=== PATIENT | female | born 1985 | race African-American/Black ===

== ENCOUNTER 2023-08-26 21:19 | Emergency (ER) | payer OTHER ==
[~2023-08-26] VITALS: Ht 177.8 cm; Wt 64.0 kg
[2023-08-26 21:24] VITALS: O2SAT 99
[2023-08-27 02:25] VITALS: BP 140/83; PULSE 85; RESP 16; TEMP 98.2
== END 2023-08-27 02:27 | disposition home or self-care (01) ==
LOC: ER 21:19
DX: F41.9 Anxiety disorder, unspecified (principal)
CPT/HCPCS: 99283

== ENCOUNTER 2023-09-14 09:51 | Emergency (ER) | payer OTHER ==
[~2023-09-14] VITALS: Ht 167.6 cm; Wt 62.0 kg
[2023-09-14 10:03] VITALS: BP 149/71; PULSE 108; RESP 18; O2SAT 100
[2023-09-14 10:15] VITALS: TEMP 98
[2023-09-14] MEDS ORDERED: ACETAMINOPHEN 325MG TABLET PO ONE (10:15)
[2023-09-14] MEDS ORDERED: TOPUD MT (12:55)
== END 2023-09-14 14:03 | disposition home or self-care (01) ==
LOC: ER 09:51
DX: S06.0X0A Concussion without loss of consciousness, initial encounter (principal); X58.XXXA Exposure to other specified factors, initial encounter; Y93.9 Activity, unspecified; Y92.89 Other specified places as the place of occurrence of the external cause; Y99.8 Other external cause status
CPT/HCPCS: 99284

== ENCOUNTER 2023-10-14 12:33 | Emergency (ER) | payer OTHER ==
[~2023-10-14] VITALS: Ht 170.2 cm; Wt 59.0 kg
[~2023-10-14 12:33] MED LIST: TOPUD MT
[2023-10-14 12:45] VITALS: O2SAT 100
[2023-10-14] MEDS ORDERED: CEFTRIAXONE SODIUM 500 MG/VIAL IM ONE (16:45)
[2023-10-14 16:51] LABS: CLARITY URINE TURBID (CLEAR); COLOR URINE DARK YELLOW (YELLOW); GLUCOSE URINE NEGATIVE (NEGATIVE); KETONES URINE 4+ (NEGATIVE); LEUKOCYTE ESTERASE URINE 2+ (NEGATIVE); NITRITE URINE POSITIVE (NEGATIVE); OCCULT BLOOD URINE NEGATIVE (NEGATIVE); PH URINE 6.5 (4.5-8.0); PROTEIN URINE TRACE (NEGATIVE); SPECIFIC GRAVITY URINE 1.025 (1.005-1.030)
[2023-10-14] MEDS ORDERED: DOXY100C5 MT (16:52)
[2023-10-14] MEDS ORDERED: METR-167 PO (16:53)
[2023-10-14 17:20] LABS: BACTERIA URINE 3+; RBC URINE 0-2 /hpf (0-2); SQUAMOUS EPITHELIAL CELL URINE 2+ /lpf (RARE/1+); WBC URINE 15-25 /hpf (0-2)
[2023-10-14 17:59] VITALS: BP 132/84; PULSE 97; RESP 18; TEMP 98.2
[2023-10-18 13:11] LABS: CHLAMYDIA TRACHOMATIS NAA Negative (Negative); NEISSERIA GONORRHOEAE NAA Negative (Negative)
== END 2023-10-14 18:00 | disposition home or self-care (01) ==
LOC: ER 12:35
DX: N89.8 Other specified noninflammatory disorders of vagina (principal); Z98.890 Other specified postprocedural states
CPT/HCPCS: 87491; 87591; 81003; 81025; 87086; 87186; 87077; 96372; 99283; J0696; Z7610

== ENCOUNTER 2024-01-20 13:45 | Emergency (ER) | payer OTHER ==
[~2024-01-20] VITALS: Ht 170.2 cm; Wt 50.1 kg
[~2024-01-20 13:45] MED LIST changes: +DOXY100C5 MT; +METR-167 PO
[2024-01-20 14:01] VITALS: O2SAT 98
[2024-01-20 17:04] LABS: CLARITY URINE CLEAR (CLEAR); COLOR URINE YELLOW (YELLOW); GLUCOSE URINE NEGATIVE (NEGATIVE); KETONES URINE NEGATIVE (NEGATIVE); LEUKOCYTE ESTERASE URINE 3+ (NEGATIVE); NITRITE URINE NEGATIVE (NEGATIVE); OCCULT BLOOD URINE NEGATIVE (NEGATIVE); PH URINE 6.5 (4.5-8.0); PROTEIN URINE NEGATIVE (NEGATIVE); SPECIFIC GRAVITY URINE 1.011 (1.005-1.030)
[2024-01-20 17:18] LABS: BACTERIA URINE 2+; RBC URINE 0-2 /hpf (0-2); SQUAMOUS EPITHELIAL CELL URINE RARE /lpf (RARE/1+)
[2024-01-20] MEDS ORDERED: METR-167 MT (17:26)
[2024-01-20 17:36] VITALS: BP 128/66; PULSE 88; RESP 18; TEMP 98.7
[2024-01-25 04:07] LABS: CHLAMYDIA TRACHOMATIS NAA Negative (Negative); NEISSERIA GONORRHOEAE NAA Negative (Negative)
== END 2024-01-20 17:41 | disposition home or self-care (01) ==
LOC: ER 13:45
DX: N76.0 Acute vaginitis (principal); Z98.890 Other specified postprocedural states
CPT/HCPCS: 81003; 81025; 87491; 87591; 99283

== ENCOUNTER 2024-01-25 09:18 | Emergency (ER) | payer OTHER ==
[~2024-01-25] VITALS: Ht 170.2 cm; Wt 53.3 kg
[~2024-01-25 09:18] MED LIST changes: +METR-167 MT
[2024-01-25 09:26] VITALS: O2SAT 100
[2024-01-25] MEDS ORDERED: METR-167 MT (10:20)
[2024-01-25 10:57] VITALS: BP 113/67; PULSE 71; RESP 18; TEMP 98.3
== END 2024-01-25 11:03 | disposition home or self-care (01) ==
LOC: ER 10:52
DX: N76.0 Acute vaginitis (principal); Z76.0 Encounter for issue of repeat prescription; Z98.890 Other specified postprocedural states
CPT/HCPCS: 99281

== ENCOUNTER 2024-07-24 12:46 | Emergency (ER) | payer OTHER ==
[~2024-07-24] VITALS: Ht 170.2 cm; Wt 56.7 kg
[2024-07-24 12:48] VITALS: O2SAT 98
[2024-07-24 13:07] VITALS: BP 137/90; PULSE 94; RESP 18; TEMP 98.9; O2SAT 100
[2024-07-24] MEDS: FLUORESCEIN SODIUM 1MG/STRIP LEFTEYE ONE (14:25)
[2024-07-24] MEDS: TETRACAINE 0.5% OPHTH DROPS 4ML LEFTEYE ONE (14:25)
[2024-07-24] MEDS ORDERED: CIPR2.5D20 EACHEYE (15:58)
== END 2024-07-24 16:28 | disposition home or self-care (01) ==
LOC: ER 12:46
DX: H10.89 Other conjunctivitis (principal); Z98.890 Other specified postprocedural states; Z79.899 Other long term (current) drug therapy
CPT/HCPCS: 99283